=== PATIENT | female | born 1960 | race Caucasian/White ===

== ENCOUNTER 2017-05-20 19:13 | Emergency (ER) | payer MEDICARE, MEDICAID ==
[~2017-05-20] VITALS: Ht 157.5 cm; Wt 50.0 kg
[2017-05-20 19:25] VITALS: BP 110/80; PULSE 86; RESP 18; TEMP 98.9; O2SAT 98
[2017-05-20] MEDS ORDERED: TOPI1TAB97 PO (19:30)
[2017-05-20] MEDS ORDERED: ZANT150T2 PO (19:30)
[2017-05-20] MEDS ORDERED: OMEP20CA2 (19:30)
[2017-05-20] MEDS ORDERED: ZOLO50TA PO (19:30)
[2017-05-20] MEDS ORDERED: TETANUS/DIPHTHERIA TOXOID ADULT 0.5 ML VIAL IM ONE (19:45)
[2017-05-20] MEDS ORDERED: MORPHINE SULFATE 4 MG/ML INJ IV PUSH ONE (19:45)
[2017-05-20] MEDS ORDERED: AMPICILLIN-SULBACTAM INJ 3 GM in SODIUM CHLORIDE 0.9% INJ 100 ML IV ONE (19:45)
--- NOTE | 2017-05-20 19:46 | PD ---
HPI Chief Complaint: Bite or Sting Time Seen by Provider: 19:33 Travel History International Travel<30 days: No Contact w/Intl Traveler<30days: No Traveled to known affect area: No History of Present Illness HPI 57-year-old female brought in by ambulance from home after dog bite to her hands. The patient reports that her brother's dog when to attack the patient's dog, and when she intervene the patient. Her in the hands. Her right hand sustained more injury than her left hand. Pain is moderate to severe, constant , worse with movements and palpation. She believes that the dog is fully immunized. She is unsure when her last tetanus was. She denies any other injuries. [facility] Past Medical History Arthritis: Yes Asthma: Yes Autoimmune Disease: No Cardiovascular Problems: No Headaches: Yes Hepatitis: Yes Immunizations Current: Yes Sleep Apnea: Yes Tetanus Vaccination: > 5 Years Influenza Vaccination: Yes ?: Not Ectopic : Yes Past Surgical History Abdominal Surgery: Yes (GASTRIC BYPASS) Hysterectomy: Yes Social History Alcohol Use: Yes Tobacco Use: Yes Substance Use: No Allergies-Medications (Allergen,Severity, Reaction): Coded Allergies: Acetaminophen (Verified Allergy, Severe, 05/20/17) Reported Meds & Prescriptions Reported Meds & Active Scripts Active Reported Zantac (Ranitidine HCl) 150 Mg Tab 150 Mg PO BID Omeprazole 20 Mg Cap Topiramate 25 Mg Tab 25 Mg PO BID Zoloft (Sertraline HCl) 50 Mg Tab 50 Mg PO DAILY Review of Systems Except as stated in HPI: all other systems reviewed are Neg Physical Exam Narrative GENERAL: Well-developed, well-nourished, awake, alert, comfortable, no apparent distress. SKIN: Dorsum of right hand with horizontal laceration of moderate depth, no visible contaminants, no active bleeding, no exposed tendons, ligaments, or bone. More proximally to this laceration there are 2 puncture wounds of moderate depth. Posterior right wrist with diagonal laceration of moderate depth without visible contaminants, without exposed bone, tendon, or ligament. No active bleeding. There is a small puncture wound to the dorsum of the right hand between the first and second fingers of moderate depth with mild venous bleeding, no visible contaminants. Left hand with a small/superficial wound over the dorsal aspect of the hand between the first and second fingers with dried blood, no active bleeding. Bilateral hands are neurovascularly intact. HEAD: Atraumatic. Normocephalic. CARDIOVASCULAR: Regular rate and rhythm. Bilateral distal radial pulses are brisk and equal. Normal capillary refill in bilateral hands. MUSCULOSKELETAL: Skin exam as above. Normal range of motion flexion and extension and bilateral hand/fingers. Bilateral hands are neurovascularly intact. NEUROLOGICAL: Awake and alert. No obvious cranial nerve deficits. Motor grossly within normal limits. Normal speech. PSYCHIATRIC: Appropriate mood and affect; insight and judgment normal. Data Data Last Documented VS Vital Signs Date Time Temp Pulse Resp B/P Pulse Ox O2 Delivery O2 Flow Rate FiO2 05/20/17 19:25 98.9 86 18 110/80 98 Orders Hand, Complete ([id number]) (05/20/17 ) Wrist, Complete ([id number]) (05/20/17 ) Hand, Complete ([id number]) (05/20/17 ) Ampicillin-Sulbactam Inj (Unasyn Inj) (05/20/17 19:45) Tetanus/Diphtheria Tox Adult (Tetanus/Di (05/20/17 19:45) Morphine Inj (Morphine Inj) (05/20/17 19:45) Lidocaine 1% Inj (50 Ml) (Xylocaine 1% I (05/20/17 20:00) MDM Medical Decision Making Medical Screen Exam Complete: Yes Emergency Medical Condition: Yes Differential Diagnosis Dog bite, hand fracture, tendon/ligament injury less likely Narrative Course Right hand x-ray shows no evidence of acute bony injury. Soft tissue injury of the dorsal hand. Left hand x-ray shows no evidence of acute bony injury. Subluxation and degenerative changes of the first MCP joint. On clinical exam the patient has a slight abrasion over the dorsum at the base of the first MCP joint. She has normal range of motion of this joint. Right wrist x-ray shows osseous structures of the wrist grossly intact. Case discussed with on-call hand surgeon Dr. Marroquin regarding the patient's bite wounds to her right hand. On exam these lacerations/wounds are moderate depth. There are no lacerated tendons. No exposed tendons, ligaments, or bone. Plan is to irrigate the wounds thoroughly and to loosely approximate the largest wound on the dorsum of the right hand as well as the wound over the posterior right wrist. Patient was given a dose of IV Unasyn here in the emergency department and will be discharged home with a prescription for Augmentin. Patient instructed to follow-up with Dr. Marroquin in her office in the next 2 days. Patient informed on when to return to the emergency department. She verbalizes understanding and agreement with plan. All wounds in the right hand were copiously irrigated with normal saline. Wound on the left hand is very superficial and is not a puncture wound. This wound was also irrigated with a copious amount of normal saline. Procedures Procedure Narrative LACERATION LOCATION: Two lacerations to the right hand/wrist LENGTH: Total length of 9 cm NUMBER OF STITCHES/SVEN: Three 4-0 nylon sutures were placed in each laceration. REPAIR: The area of the laceration was prepped with Betadine and sterilely draped. The laceration was infiltrated with 7 cc of 1% lidocaine. The wound was copiously irrigated and explored without evidence of foreign body, tendon injury or neurovascular injury. The wound was loosely approximated using a total of six 4-0 nylon sutures. This was a single layer repair. A sterile dressing was applied. The patient was advised to keep the dressing clean and dry. Patient tolerated the procedure well. Diagnosis Primary Impression: Dog bite, hand Qualified Code: S61.459A - Dog bite, hand, unspecified laterality, initial encounter Referrals: Karlee Marroquin MD 2 days Additional Instructions: Take antibiotics as prescribed. Follow-up with hand surgeon Dr. Marroquin in the next 2-3 days. Return to the emergency department for worsening symptoms or any other concerns as discussed. Scripts Tramadol 50 Mg Tab50 Mg PO Q6H PRN (PAIN) #20 TAB Ref 0 Prov:Praveen Villafuerte MD 05/20/17 Amoxicillin-Clavulanate (Augmentin)875-125 Mg Tab1 Tab PO BID 14 Days Ref 0 Prov:Praveen Villafuerte MD 05/20/17 Disposition: 01 DISCHARGE HOME Condition: Stable Praveen Villafuerte MD May 20, 2017 19:46
[2017-05-20] MEDS ORDERED: LIDOCAINE HCL 1% 50 ML VIAL INFIL ONE (20:00)
--- NOTE | 2017-05-20 20:02 | RADRPT ---
EXAM DATE/TIME: 05/20/2017 19:48 [facility] COMPARISON: No previous studies available for comparison. INDICATIONS : Pain and laceration posterior left hand, dog bite MEDICAL HISTORY : None. SURGICAL HISTORY : None. ENCOUNTER: Initial ACUITY: 1 day PAIN SCORE: 4/10 LOCATION: Left Hand FINDINGS: Soft tissue irregularity about the dorsal hand. No radiopaque foreign body seen. The osseous struct ures of the hand and wrist appear to be grossly intact. No fracture seen. There is subluxation of t he 1st MCP articulation with associated degenerative changes. CONCLUSION: No evidence of acute bony injury. Subluxation and degenerative changes of the 1st MCP joint. Henry Newell MD on May 20, 2017 at 19:59 Board Certified Radiologist. This report was verified electronically.
--- NOTE | 2017-05-20 20:03 | RADRPT ---
EXAM DATE/TIME: 05/20/2017 19:49 [facility] COMPARISON: No previous studies available for comparison. INDICATIONS : Pain and laceration posterior right hand, dog bite MEDICAL HISTORY : None. SURGICAL HISTORY : None. ENCOUNTER: Initial ACUITY: 1 day PAIN SCORE: 5/10 LOCATION: Right Hand FINDINGS: Soft tissue injury about the dorsal hand. No radiopaque foreign bodies seen. The osseous structures of the hand and wrist appear to be grossly intact. No evidence of fracture. Moderate degenerative changes in the 1st MCP joint CONCLUSION: No evidence of acute bony injury. Soft tissue injury of the dorsal hand. Henry Newell MD on May 20, 2017 at 20:00 Board Certified Radiologist. This report was verified electronically.
--- NOTE | 2017-05-20 20:04 | RADRPT ---
EXAM DATE/TIME: 05/20/2017 19:50 [facility] COMPARISON: No previous studies available for comparison. INDICATIONS : Pain and laceration porterior right wrist MEDICAL HISTORY : None. SURGICAL HISTORY : None. ENCOUNTER: Initial ACUITY: 1 day PAIN SCORE: 5/10 LOCATION: Right Wrist FINDINGS: Soft tissue injury dorsal hand and wrist. The osseous structures are grossly in normal alignment. N o fracture seen. No radiopaque foreign bodies other than the metallic bracelet. CONCLUSION: Osseous structures of the wrist are grossly intact. Henry Newell MD on May 20, 2017 at 20:01 Board Certified Radiologist. This report was verified electronically.
[2017-05-20] MEDS ORDERED: TRAM50TA PO (21:01)
[2017-05-20] MEDS ORDERED: AUGM875T3 PO (21:01)
== END 2017-05-20 21:26 | disposition home or self-care (01) ==
LOC: NEPD 19:13
DX: S61.451A Open bite of right hand, initial encounter (principal); S61.452A Open bite of left hand, initial encounter; W54.0XXA Bitten by dog, initial encounter; Z23 Encounter for immunization
CPT/HCPCS: 12004; 73110; 73130; 90471; 90714; 96365; 96375; 99284; J0295; J2270